=== PATIENT | female | born 1990 ===

== ENCOUNTER 2016-10-13 07:05 | Inpatient (IN) ==
[2016-10-13] MEDS ORDERED: FAMOTIDINE 20 MG/2 ML VIAL IV ONE (07:41)
[2016-10-13] MEDS ORDERED: ceFAZolin 2,000 MG in PREMIX 1 EACH IV ONE (07:41)
[2016-10-13] MEDS ORDERED: CITRIC ACID/SODIUM CITRATE 30 ML UDCUP PO ONE (07:41)
[2016-10-13] MEDS ORDERED: LACTATED RINGERS 1,000 ML IV ONE (07:48)
[2016-10-13] MEDS ORDERED: OXYTOCIN/LR 30 UNIT/1,000 ML BAG IV PRN (07:57)
[2016-10-13] MEDS ORDERED: OXYTOCIN 10 UNIT/ML VIAL IM PRN (07:58)
[2016-10-13] MEDS ORDERED: LACTATED RINGERS 1,000 ML IV SCH ×2 (08:00→10:30)
[2016-10-13 08:20] LABS: Basophils % 0.3 % (0.0-0.8); Eosinophils # 0.1 10*3/uL (0.0-0.87); Eosinophils % 1.3 % (0.00-10.9); Hematocrit 35.6 VOL% (35.7-47.0); Hemoglobin 11.9 GM/DL (12.0-16.0); Immature Granulocytes % 0.3 %; Immature Granulocytes Absolute 0.02 #; Lymphocytes # 1.3 10*3/uL (1.4-4.0); Lymphocytes % 20.6 % (21.3-54.2); Mean Corpuscular HGB Conc 33.4 GM/DL (32-36); Mean Corpuscular Hemoglobin 27 PG (27-34); Mean Corpuscular Volume 80.7 FL (87-102); Mean Platelet Volume 11.3 FL (9.6-12.0); Monocytes # 0.4 10*3/uL (0.11-0.8); Monocytes % 5.9 % (1.7-12.7); Neutrophils # 4.5 10*3/uL (1.4-7.4); Neutrophils % 71.6 % (38.7-73.9); Platelet Count 206 T/CUMM (130-400); Red Blood Count 4.41 MC/CUMM (3.8-5.5); Red Cell Distribution Width 14.8 % (9.3-17.3); White Blood Count 6.3 T/CUMM (4-12)
[2016-10-13 08:54] LABS: Alanine Aminotransferase 16 U/L (13-56); Albumin 2.8 G/DL (3.4-5.0); Alkaline Phosphatase 147 U/L (45-117); Aspartate Amino Transferase 13 U/L (0-37); Bilirubin,Total < 0.39 MG/DL (0.2-1.0); Blood Urea Nitrogen 10 MG/DL (7-18); Calcium 9.1 MG/DL (8.5-10.1); Glucose 88 MG/DL (74-106); Osmolality,Calculated 270.8 MOS/KG (273-304); Potassium 4.2 MMOL/L (3.5-5.1); Sodium 137 MMOL/L (136-145); Total Protein 6.8 G/DL (6.4-8.3)
--- NOTE | 2016-10-13 09:30 | OB/GYN History & Physical ---
History of Present Illness Chief complaint: For repeat section due to previous History of present illness: Ms. Palomino is a 26 year old female who presents for repeat section due to previous 1. Her FAREED is 10/20/2016 for an estimated gestational age of 39 weeks. The risk and benefits of been thoroughly discussed with this patient and significant other and plan of care has been discussed with Dr. Leonardo, all parties are in agreement plan. The patient received her care through the [facility] and the [facility] and she received routine care, her course was uneventful. labs she is O+, serologies nonreactive, rubella is immune, Pap smear was within normal limits, hepatitis B negative, HIV negative, GBS culture negative. Review of systems is negative with exception of above. The patient has had a previous section of a liveborn and she reported no complications with that . Home Medications Medication Instructions Recorded Confirmed Type Pnv No.95/Ferrous Fum/Folic AC 1 tablet PO DAILY 10/13/16 10/13/16 History [ Tablet] Allergies Allergy/AdvReac Type Severity Reaction Status Date / Time No Known Allergies Allergy Verified 10/13/16 07:41 12 point system: reviewed and no additional remarkable complaints except as stated Medical,Surgical,& Family Hx - Medical History Medical History: noncontributory - Surgical History Abdominal Surgeries: Surgical HX of: Cholecystectomy (2012) Reproductive Surgeries: Surgical HX of;: Section - Family History Family History: Reports;: Family Heart Disease (MGF), Family Hypertension, Additional Family History (MOTHER WITH SEIZURES) - Social History Smoking Status: Never smoker Frequency of Alcohol Use: None Type of Drug Use: None Marital Status: Single Lives With:: Significant Other Functional capacity: independent ambulation 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 Vitals: Vital Signs Temp Pulse Resp BP 10/13/16 07:45 97.5 F L 69 20 148/63 General appearance: no acute distress - Antepartum / Post Antepartum Exam Cervix - Dilatation: Deferred Breast: bilateral: normal Abdomen obstetrics: Present: bowel sounds normal Uterus exam: Present: enlarged - Respiratory Respiratory exam: Present: clear to auscultation bilaterally - Cardiovascular Cardiovascular exam: Present: regular rate and rhythm - GI/Abdominal GI/Abdominal exam: Present: normal bowel sounds, soft - Extremities Exam Extremities exam: Present: normal inspection - Back Exam Back exam: Present: normal inspection - Neurological Exam Neurological exam: Present: alert, oriented X3 - Psychiatric Psychiatric exam: Present: normal affect, normal mood - Skin Skin exam: Present: normal color, warm Assessment and Plan (1) Previous section Status: Acute Assessment and plan: Admit IV fluids Preop and consent for repeat section per Dr. Leonardo Anticipate viable infant Current Visit: Yes (2) Term Status: Acute Assessment and plan: Same as above. Current Visit: Yes Results - Labs CBC & BMP: 10/13/16 07:55 10/13/16 07:55
[2016-10-13] MEDS ORDERED: fentaNYL 100 MCG/2 ML VIAL ONE (10:19)
[2016-10-13] MEDS ORDERED: MIDAZOLAM 2 MG/2 ML VIAL ONE (10:20)
--- NOTE | 2016-10-13 10:20 | Operative Note ---
Date of procedure: 10/13/16 Procedure: Preoperative diagnosis: Elective sterilization 39 weeks, repeat section Postoperative diagnosis: Same Anesthesia:[] Regional anesthesia Estimated blood loss: [] 300 cc Surgeon: Dr. Leonardo Findings: [] 8 lbs. 13 oz. female, delivered at 9:41 AM, Apgars were 8 at 1 minute 9 at 5 minutes, cord blood and cord gas was obtained Complications: None Procedure: Low transverse section The patient was taken to the operating suite heart tones were obtained prior to and after regional anesthesia was obtained. She was placed in supine position her abdomen was prepped and draped in usual manner for major abdominal surgery. Through an abdominal incision the skin, subcutaneous, fascial layer and peritoneal the abdomen was entered. The bladder flap was created and a low transverse incision was made.. Fluid was clear and normal amount X, Apgars, the placenta was delivered and sent to lab for further evaluation. Injected with intrauterine Pitocin. The first layer of the uterus was closed with #1 Vicryl in a continuous locking manner. Close to imbricate the first layer with #1 Vicryl. The peritoneum was approximated with #2-0 Vicryl.[] All the last sponges and instruments were accounted for -2.) #2-0 Vicryl. Fascia was approximated with #0-0 Maxon.. The skin was approximated with darryn. She tolerated procedure well and was taken to recovery room in stable condition. Surgeon / Physician: Ebonie Leonardo Results - Labs CBC & BMP: 10/13/16 07:55 10/13/16 07:55 Discharge Plan - Discharge Medications No Action Pnv No.95/Ferrous Fum/Folic AC [ Tablet] 1 tablet PO DAILY - Follow Up or Referral - Forms/Instructions
[2016-10-13] MEDS ORDERED: SIMETHICONE CHEW 80 MG TABLET PO PRN (10:21)
[2016-10-13] MEDS ORDERED: ONDANSETRON 4 MG/2 ML VIAL IV PRN (10:21)
[2016-10-13] MEDS ORDERED: RHO(D) IMMUNE GLOBULIN 300 MCG SYRINGE IM ONE (10:21)
[2016-10-13] MEDS ORDERED: OXYTOCIN/LR 20 UNIT/1,000 ML BAG IV ONE (10:21)
[2016-10-13] MEDS ORDERED: ePHEDrine 50 MG/ML AMP ONE (10:21)
[2016-10-13] MEDS ORDERED: ACETAMINOPHEN 325 MG TABLET PO PRN (10:21)
[2016-10-13] MEDS ORDERED: MORPHINE 10 MG/10 ML VIAL ONE (10:21)
[2016-10-13] MEDS ORDERED: MAGNESIUM HYDROXIDE SUSP 30 ML UDCUP PO PRN (10:21)
[2016-10-13 10:34] LABS: Apearance,Urine CLEAR (Clear); Bacteria,Urine Occasional /HPF (Few); Bilirubin,Urine Negative (Negative); Blood, Urine Negative (Negative); Glucose,Urine (UA) Negative (Negative); Ketones,Urine Negative (Negative); Mucus,Urine Occasional /LPF (Occasional); Nitrite,Urine Negative (Negative); Protein,Urine Negative; RBC,Urine <1 /HPF (0-4); Squamous Epithelial Cell,Urine Occasional /HPF (0-10); Urine Color Straw (Yellow); Urine Specific Gravity 1.004 (1.001-1.035); Urine Urobilinogen < 2.0 EU/DL (0.2-1.0); WBC,Urine <1 /HPF (0-6)
[2016-10-13 10:35] LABS: Cord Venous Blood HCO3 22.1 MMOL/L; Cord Venous Blood PCO2 80.8 MMHG; Cord Venous Blood PO2 17.3 MMHG
[2016-10-13] MEDS ORDERED: diphenhydrAMINE 50 MG/1 ML VIAL ONE (11:54)
[2016-10-13] MEDS ORDERED: diphenhydrAMINE 50 MG/1 ML VIAL IV PRN (11:59)
--- NOTE | 2016-10-13 15:27 | Anesthesia Post-Op ---
Anesthesia Post OP - Post Ansesthetic Evaluation Patient seen in post op: Yes Resp: within normal limits CV: within normal limits Mental: within normal limits Temp: within normal limits [id number]: within normal limits Nausea and Vomiting: within normal limits Pain: within normal limits
[2016-10-13] MEDS: IBUPROFEN 800 MG TABLET PO PRN (15:52)
[2016-10-14] MEDS: DOCUSATE SODIUM 100 MG CAPSULE PO SCH ×3 (00:04→20:55)
[2016-10-14 06:57] LABS: Basophils % 0.3 % (0.0-0.8); Eosinophils # 0.1 10*3/uL (0.0-0.87); Eosinophils % 1.2 % (0.00-10.9); Hematocrit 28.9 VOL% (35.7-47.0); Hemoglobin 9.6 GM/DL (12.0-16.0); Immature Granulocytes % 0.3 %; Immature Granulocytes Absolute 0.02 #; Lymphocytes # 1.2 10*3/uL (1.4-4.0); Lymphocytes % 20.2 % (21.3-54.2); Mean Corpuscular HGB Conc 33.2 GM/DL (32-36); Mean Corpuscular Hemoglobin 27 PG (27-34); Mean Corpuscular Volume 81.9 FL (87-102); Monocytes # 0.4 10*3/uL (0.11-0.8); Monocytes % 6.4 % (1.7-12.7); Neutrophils # 4.1 10*3/uL (1.4-7.4); Neutrophils % 71.6 % (38.7-73.9); Platelet Count 160 T/CUMM (130-400); Red Blood Count 3.53 MC/CUMM (3.8-5.5); White Blood Count 5.8 T/CUMM (4-12)
[2016-10-14] MEDS: FERROUS SULFATE 325 MG TABLET PO SCH ×2 (09:30→20:55)
[2016-10-14] MEDS: MULTIVITAMIN (PRENATAL) TABLET PO SCH (09:30)
[2016-10-14] MEDS: IBUPROFEN 800 MG TABLET PO PRN (13:13)
--- NOTE | 2016-10-14 14:37 | Progress Note ---
Family Medicine PN Sub Interval history: Postop day #1 Status post section Incision sites intact Abdomen soft nontender uterus is nice and firm Extremities well with no limits neurologic grossly intact Status post section present continue with present therapy. Exam (Progress Note) - Constitutional Vitals: Period Temp Pulse Resp BP Sys/Prado Pulse Ox Last 24 Hr 97.2 F-98.1 F 57-64 18-20 119-139/64-81 95-99 Results - Labs CBC & BMP: 10/14/16 06:39 10/13/16 07:55 Quality Measures - VTE Contraindication to Pharmacological VTE Prophylaxis: Clinical assessment deems Pt at low risk, no prophalaxis needed
[2016-10-15] MEDS ORDERED: LANOLIN 50% CREAM 0.3 OZ TUBE TOP PRN (02:24)
[2016-10-15] MEDS: MULTIVITAMIN (PRENATAL) TABLET PO SCH (08:57)
[2016-10-15] MEDS: DOCUSATE SODIUM 100 MG CAPSULE PO SCH (08:57)
[2016-10-15] MEDS: FERROUS SULFATE 325 MG TABLET PO SCH (08:57)
--- NOTE | 2016-10-15 11:53 | Discharge Summary ---
Hospital Course - Hospital Course Hospital Course: Postop day #2 Status post section Patient is doing well No shortness of breath chest pain or palpitations incision sites intact Uterus is nice and firm Extremities well with no limits neurologic grossly intact Assessment plan we will discharge today follow-up our office in 2 weeks. Specialty Discharge - Follow Up or Referrals Discharge Plan - Discharge Data Condition at Discharge: Stable Discharge Diet: advance to your usual diet Activity: increase activity as tolerated Hygiene: may shower Driving: not until seen by doctor Contact your physician if you experience:: fever over 101, Bleeding - Discharge Medications New HYDROcodone/ACETAMIN 5-325 [[place] 5-325] 1 tablet PO Q6H PRN #30 tablet PRN Reason: Pain Moderate (4-7) Ibuprofen Tab [Motrin Tab] 800 mg PO Q8H PRN #30 tablet PRN Reason: Pain Severe (8-10) Ferrous Sulfate Tab [Feosol Original Tab] 325 mg PO BID #14 tablet No Action Pnv No.95/Ferrous Fum/Folic AC [ Tablet] 1 tablet PO DAILY - Follow Up or Referral - Forms/Instructions Instructions: Section (DC), Perineal Care (DC), Bleeding (DC) Exam - Constitutional Vitals: Period Temp Pulse Resp BP Sys/Prado Pulse Ox Last 24 Hr 97.3 F-97.8 F 65-78 18-22 133-143/68-74 97-98 DS: Provider Date of admission: 10/13/16 07:06 Primary care physician: Liza Hernandez MD Attending physician on admission: Ebonie Leonardo MD Consults: 10/13/16 07:41 Consult to Anesthesiology [CONS] Routine Consulting Provider: Reason for Anesthesiology: Pre-op Clearance 10/13/16 10:21 Consult to Belt And Link Assembly Supervisor [CONS] Routine Consult Belt And Link Assembly Supervisor: Breast Feeding Discharging clinician: Ebonie Leonardo MD
[2016-10-15] MEDS: IBUPROFEN 800 MG TABLET PO PRN (13:00)
[2016-10-15 16:06] VITALS: BP 166/79
== END 2016-10-15 15:45 | disposition home or self-care (01) | DRG 766 ==
LOC: N.LDOUT 07:05 → N.LD 07:06 → N.OB 12:20
PROVIDERS: ADMIT Obstetrics & Gynecology; ATTEND Obstetrics & Gynecology
PROC: LDCSECT (ICD-10-PCS; 2016-10-13 08:00)